=== PATIENT | male | born 1970 | race Caucasian/White ===

== ENCOUNTER 2017-06-30 14:48 | Inpatient (IN) | payer OTHER ==
[2017-06-30 14:48] VITALS: BMI 30.7
[2017-06-30] MEDS ORDERED: Sodium Chloride 0.9% 1,000 ML IV ONE (16:23)
[2017-06-30] MEDS ORDERED: Sodium Chloride 0.9% 1,000 ML ONE (16:43)
[2017-06-30 16:53] LABS: URINE BACTERIA RARE (<OCC); URINE BILIRUBIN NEGATIVE (NEGATIVE); URINE BLOOD 1+ (NEGATIVE); URINE CLARITY Clear (Clear); URINE COLOR Yellow (YELLOW); URINE GLUCOSE (UA) NORMAL (Normal); URINE LEUKOCYTE ESTERASE NEG Leu/uL (Negative); URINE NITRATE NEGATIVE (NEGATIVE); URINE PROTEIN 3+ mg/dL (NEGATIVE); URINE UROBILINOGEN NORMAL mg/dL (0.2-1.0)
[2017-06-30 16:54] LABS: BASO % 0.1 % (0.0-2.0); EOS % 0.2 % (0.0-4.0); HEMOGLOBIN 16.1 g/dL (12.0-18.0); LYMPH # 0.6 K/uL (1.0-4.3); LYMPH % 4.9 % (20.0-40.0); MEAN CELL VOLUME 91.2 fL (80.0-94.0); MEAN CORPUSCULAR HEMOGLOBIN 31.9 pg (27.0-31.0); MEAN PLATELET VOLUME 9.3 fL (7.2-11.7); MONO # 0.2 K/uL (0.0-0.8); MONO % 1.7 % (0.0-10.0); NEUT # 12.2 K/uL (1.8-7.0); NEUT % 93.1 % (50.0-75.0); PLATELET COUNT 177 K/uL (130-400); RBC 5.06 Mil/uL (4.40-5.90); RED CELL DISTRIBUTION WIDTH 12.8 % (11.5-14.5); WHITE BLOOD COUNT 13.1 K/uL (4.8-10.8)
[2017-06-30 16:56] LABS: PROTHROMBIN TIME 11.6 SECONDS (9.7-12.2)
[2017-06-30 17:00] LABS: BLOOD UREA NITROGEN 15 mg/dL (9-20); GFR AFRICAN-AMERICAN > 60; GFR NON-AFRICAN AMERICAN > 60
[2017-06-30 17:01] LABS: ALT/SGPT 40 U/L (21-72); AST/SGOT 38 U/L (17-59); CALCIUM 8.4 mg/dl (8.6-10.4); LIPASE 57 U/L (23-300)
[2017-06-30] MEDS ORDERED: Iohexol 350mg/ml 100 ML ONE (17:17)
[2017-06-30 18:20] LABS: BANDS 21 % (0-2); LYMPHOCYTE 5 % (20-40); NEUTROPHIL 74 % (50-75); TOTAL CELLS COUNTED 100
[2017-06-30 18:21] LABS: LARGE PLATELETS PRESENT; MICROCYTOSIS SLIGHT; PLATELET ESTIMATE NORMAL (NORMAL)
--- NOTE | 2017-06-30 18:53 | CT ---
PROCEDURE: CT Abdomen and Pelvis with contrast HISTORY: Fever, abdominal pain in right lower quadrant tenderness COMPARISON: None. TECHNIQUE: Contrast dose: 100 cc Omnipaque 350 Radiation dose: Total exam DLP = 676.26 mGy-cm. This CT exam was performed using one or more of the following dose reduction techniques: Automated exposure control, adjustment of the mA and/or kV according to patient size, and/or use of iterative reconstruction technique. FINDINGS: LOWER THORAX: Unremarkable. LIVER: Unremarkable. No gross lesion or ductal dilatation. GALLBLADDER AND BILE DUCTS: Unremarkable. PANCREAS: Unremarkable. No gross lesion or ductal dilatation. SPLEEN: Unremarkable. ADRENALS: Unremarkable. No mass. KIDNEYS AND URETERS: Unremarkable. No hydronephrosis. No solid mass. VASCULATURE: Unremarkable. No aortic aneurysm. BOWEL: Diverticulosis without an acute inflammatory component or other associated pathologic process. APPENDIX: Inflammatory changes involving the tip of the appendix consistent with acute appendicitis. Adjacent mild inflammatory change. No focal fluid collection, loculated air, free air. PERITONEUM: Unremarkable. No free fluid. No free air. LYMPH NODES: Unremarkable. No enlarged lymph nodes. BLADDER: Unremarkable. REPRODUCTIVE: Unremarkable. BONES: No acute fracture. OTHER FINDINGS: None. IMPRESSION: Acute, uncomplicated appendicitis. Critical results protocol: Study completed 18:28 Verbal results provided to attending physician in the emergency department Dr. Jordan Ibarra at 18:43 Final results available in the EMR at 18:48
--- NOTE | 2017-06-30 19:20 | C.PDOC ---
Time Seen by Provider: 06/30/17 15:34 Chief Complaint (Nursing): Abdominal Pain History Per: Patient Onset/Duration Of Symptoms: Days (1) Current Symptoms Are (Timing): Still Present Severity: Moderate Location Of Pain/Discomfort: RLQ, Epigastric Quality Of Discomfort: "Pain" Associated Symptoms: Fever, Chills, Nausea, Loss Of Appetite Exacerbating Factors: Food Alleviating Factors: None Additional History Per: Prior Records Past Medical History Reviewed: Historical Data, Nursing Documentation, Vital Signs Vital Signs: Last Vital Signs Temp 98.3 F 06/30/17 19:20 Pulse 86 06/30/17 19:20 Resp 20 06/30/17 19:20 BP 131/73 06/30/17 19:20 Pulse Ox 98 06/30/17 19:20 - Medical History PMH: No Chronic Diseases Family History: States: Unknown Family Hx - Social History Hx Tobacco Use: No Hx Alcohol Use: Yes Hx Substance Use: No - Immunization History Hx Tetanus Toxoid Vaccination: No Hx Influenza Vaccination: No Hx Pneumococcal Vaccination: No Review Of Systems Except As Marked, All Systems Reviewed And Found Negative. Constitutional: Positive for: Fever, Malaise Cardiovascular: Negative for: Chest Pain Respiratory: Negative for: Cough, Shortness of Breath Gastrointestinal: Positive for: Abdominal Pain. Negative for: Vomiting, Diarrhea Genitourinary: Negative for: Dysuria Musculoskeletal: Negative for: Neck Pain Skin: Negative for: Rash Neurological: Negative for: Weakness, Numbness, Seizures Physical Exam - Physical Exam Appears: No Acute Distress Skin: Normal Color, Warm, Dry, No Rash Head: Atraumatic, Normacephalic Eye(s): bilateral: Normal Inspection, PERRL, EOMI Neck: Normal ROM, Supple Cardiovascular: Rhythm Regular Respiratory: Normal Breath Sounds, No Accessory Muscle Use Gastrointestinal/Abdominal: Soft, Tenderness (RLQ), No Distention Back: No CVA Tenderness Extremity: Normal ROM Neurological/Psych: Oriented x3, Normal Motor, Normal Sensation ED Course And Treatment - Laboratory Results Result Diagrams: 06/30/17 16:30 06/30/17 16:30 Lab Interpretation: Abnormal Interpretation Of Abnormal: Bandemia O2 Sat by Pulse Oximetry: 98 Pulse Ox Interpretation: Normal - CT Scan/US CT abd/pelv Other Rad Studies (CT/US): Read By Radiologist, Radiology Report Reviewed CT/US Interpretation: IMPRESSION: Acute, uncomplicated appendicitis. Progress - Interventions Interventions:: Observation, Intravenous fluid - Medications Administered Intravenous: Antiemetic, NSAID, Other (Abx) - Data Reviewed Data Reviewed: Lab, Diagnostic imaging, Old records - Patient Status Patient status: Partially improved - Continuity of Care Discussed patient case with:: Patient, ED Nurse Discussed pt. case with audit consultant/specialty: General Surgery - Patient Plan Patient Plan: Admission Disposition Discussed With : Flip Smith Comment: He accepted pt on his service. Pt was also signed out to on-call surgery resident. Doctor Will See Patient In The: Hospital Counseled Patient/Family Regarding: Studies Performed, Diagnosis - Disposition Disposition: HOSPITALIZED Disposition Time: 20:02 Condition: FAIR Forms: [facility] (Congolese) - Clinical Impression Clinical Impression: Acute appendicitis
[2017-06-30] MEDS ORDERED: cefOXitin IV 2 gm in Dextrose 2 GM/50 ML BAG IVPB STA (19:24)
[2017-06-30] MEDS ORDERED: cefOXitin 2 GM in Sodium Chloride 0.9% 100 ML IV ONE (19:30)
[2017-06-30] MEDS ORDERED: Piperacillin/Tazobact 3.375 GM in Sodium Chloride 100 ML IVPB SCH (20:45)
--- NOTE | 2017-06-30 20:49 | CP.PCM.HP ---
History of Present Illness - History of Present Illness History of Present Illness: General Surgery Dr. Smith 47 y/o M w/ no significant PMHx presents to the ED c/o abd pain x1day. Pt reports localized pain to brenda-umbilical region w/ radiation to the back. Pt has never had this pain in the past. Nothing made pain worse or better. Pt admits to nausea but denies vomiting. Pt was febrile in the ED but denies fever or chills prior to arrival. Pt admits to increased urinary frequency but denies dysuria, diarrhea, and constipation. PMHx: hemorrhoids Meds: reviewed in chart NKDA PSHx: denies SHx: denies tobacco and drug use. admits to social EtOH use FHx: noncontributory Present on Admission - Present on Admission Any Indicators Present on Admission: No Review of Systems - Review of Systems All systems: reviewed and no additional remarkable complaints except (see HPI) Past Patient History - Infectious Disease Hx of Infectious Diseases: None - Past Social History Smoking Status: Never Smoked - PSYCHIATRIC Hx Substance Use: No - SURGICAL HISTORY Hx Surgeries: No - ANESTHESIA Hx Anesthesia: No Hx Anesthesia Reactions: No Hx Malignant Hyperthermia: No Meds Allergies/Adverse Reactions: Allergies Allergy/AdvReac Type Severity Reaction Status Date / Time No Known Allergies Allergy Verified 05/11/12 10:40 Physical Exam - Constitutional Appears: Non-toxic, No Acute Distress - Head Exam Head Exam: NORMAL INSPECTION - Eye Exam Eye Exam: Normal appearance - ENT Exam ENT Exam: Mucous Membranes Moist - Respiratory Exam Respiratory Exam: NORMAL BREATHING PATTERN. absent: Accessory Muscle Use, Respiratory Distress - Cardiovascular Exam Cardiovascular Exam: absent: Bradycardia, Tachycardia - GI/Abdominal Exam GI & Abdominal Exam: Guarding (voluntary), Soft, Tenderness (TTP RLQ). absent: Distended, Rebound - Expanded GI/Abdominal Exam Expanded Expanded GI & Abdominal Exam: McBurney's Point Tenderness. absent: Obturator Sign, Psoas Sign, Rovsing's Sign - Extremities Exam Extremities exam: Positive for: normal inspection - Neurological Exam Neurological exam: Alert, Oriented x3 - Psychiatric Exam Psychiatric exam: Normal Affect, Normal Mood - Skin Skin Exam: Dry, Intact, Normal Color, Warm Results - Vital Signs Recent Vital Signs: Last Vital Signs Temp 98.3 F 06/30/17 19:20 Pulse 86 06/30/17 19:20 Resp 20 06/30/17 19:20 BP 131/73 06/30/17 19:20 Pulse Ox 98 06/30/17 20:02 - Labs Result Diagrams: 06/30/17 16:30 06/30/17 16:30 Labs: Laboratory Results - last 24 hr 06/30/17 06/30/17 06/30/17 16:30 16:30 16:30 WBC 13.1 H RBC 5.06 Hgb 16.1 Hct 46.1 MCV 91.2 MCH 31.9 H MCHC 35.0 RDW 12.8 Plt Count 177 MPV 9.3 Neut % (Auto) 93.1 H Lymph % (Auto) 4.9 L [place] % (Auto) 1.7 Eos % (Auto) 0.2 Baso % (Auto) 0.1 Neut # 12.2 H Lymph # 0.6 L [place] # 0.2 Eos # 0.0 Baso # 0.0 Neutrophils % (Manual) 74 Band Neutrophils % 21 H* Lymphocytes % (Manual) 5 L Monocytes % (Manual) TEST NOT PERFORMED Platelet Estimate Normal Large Platelets Present Microcytosis (manual) Slight PT INR APTT Sodium 131 L Potassium 3.7 Chloride 98 Carbon Dioxide 24 Anion Gap 12 BUN 15 Creatinine 1.0 Est GFR ( Amer) > 60 Est GFR (Non-Af Amer) > 60 Random Glucose 91 Calcium 8.4 L Total Bilirubin 1.4 H AST 38 ALT 40 Alkaline Phosphatase 50 Total Protein 7.7 Albumin 4.0 Globulin 3.8 Albumin/Globulin Ratio 1.0 Lipase 57 Urine Color Yellow Urine Clarity Clear Urine pH 5.0 Ur Specific [place] 1.015 Urine Protein 3+ H Urine Glucose (UA) Normal Urine Ketones Negative Urine Blood 1+ H Urine Nitrate Negative Urine Bilirubin Negative Urine Urobilinogen Normal Ur Leukocyte Esterase Neg Urine WBC (Auto) 1 Urine RBC (Auto) 5 H Ur Transition Epith Cell < 1 Urine Bacteria Rare 06/30/17 16:38 WBC RBC Hgb Hct MCV MCH MCHC RDW Plt Count MPV Neut % (Auto) Lymph % (Auto) [place] % (Auto) Eos % (Auto) Baso % (Auto) Neut # Lymph # [place] # Eos # Baso # Neutrophils % (Manual) Band Neutrophils % Lymphocytes % (Manual) Monocytes % (Manual) Platelet Estimate Large Platelets Microcytosis (manual) PT 11.6 INR 1.0 APTT 25 Sodium Potassium Chloride Carbon Dioxide Anion Gap BUN Creatinine Est GFR ( Amer) Est GFR (Non-Af Amer) Random Glucose Calcium Total Bilirubin AST ALT Alkaline Phosphatase Total Protein Albumin Globulin Albumin/Globulin Ratio Lipase Urine Color Urine Clarity Urine pH Ur Specific [place] Urine Protein Urine Glucose (UA) Urine Ketones Urine Blood Urine Nitrate Urine Bilirubin Urine Urobilinogen Ur Leukocyte Esterase Urine WBC (Auto) Urine RBC (Auto) Ur Transition Epith Cell Urine Bacteria - Imaging and Cardiology CT scan - abdomen Status: Image reviewed by me, Report reviewed by me Assessment & Plan - Assessment and Plan (Free Text) Assessment: 47 y/o M w/ acute appendicitis - NPO, IVF - Zosyn, Flagyl - pain management - monitor vitals - serial abd exam - OR in the AM for Lap mary Pt discussed w/ Dr. Sarah Amaya DO PGY2
[2017-06-30] MEDS: Piperacill/Tazo 3.375gm in Dex 3.375 GM/50 ML BAG IVPB SCH (22:31)
[2017-06-30] MEDS: Potassium Ch 20mEq in D5W 20 ML in Dextrose 5%/0.9% NS 1,000 ML IV SCH (22:31)
[2017-06-30] MEDS: metroNIDAZOLE IV 500 mg/100 ml 500 MG/100 ML BAG IVPB SCH (23:01)
[2017-07-01] MEDS: Piperacill/Tazo 3.375gm in Dex 3.375 GM/50 ML BAG IVPB SCH ×3 (03:32→21:12)
[2017-07-01] MEDS: metroNIDAZOLE IV 500 mg/100 ml 500 MG/100 ML BAG IVPB SCH ×3 (05:07→21:13)
[2017-07-01] MEDS: Potassium Ch 20mEq in D5W 20 ML in Dextrose 5%/0.9% NS 1,000 ML IV SCH ×2 (05:08→14:18)
[2017-07-01] MEDS ORDERED: Propofol 10 mg/ml Inj (20 ML) ONE (09:24)
[2017-07-01] MEDS ORDERED: Rocuronium 10 mg/ml (10 ml) ONE (09:26)
[2017-07-01] MEDS ORDERED: Lidocaine 4% (Laryng-O-Jet) Kit MM ONE (09:27)
[2017-07-01] MEDS ORDERED: ceFAZolin IV 2 gm in Dextrose 0 GM/0 ML BAG IVPB ONE (09:27)
[2017-07-01] MEDS ORDERED: ceFAZolin IV 1 gm in Dextrose 0 GM/0 ML BAG IVPB ONE (09:27)
[2017-07-01] MEDS ORDERED: Bupivacaine-Epi 0.5%-1:200,000 PF Inj IJ ONE (09:27)
[2017-07-01] MEDS ORDERED: Lactated Ringer's 1,000 ML IV ONE ×2 (09:46→10:30)
[2017-07-01] MEDS ORDERED: Neostigmine Methylsulfate 3mg/3ml Syringe IV ONE (10:26)
[2017-07-01] MEDS ORDERED: Oxycodone/Acetaminophen 5/325 mg Tab PO PRN (10:46)
--- NOTE | 2017-07-01 10:46 | PCM.SURG1 ---
Surgeon's Initial Post Op Note - Surgeon's Notes Surgeon: Dr Smith Bleach Boiler Filler: Dr Hayward PGY3 Type of Anesthesia: General Endo Pre-Operative Diagnosis: acute appendicitis Operative Findings: phlegmon Post-Operative Diagnosis: acute appendicitis w/ phlegmon Operation Performed: laparoscopic appendectomy Specimen/Specimens Removed: appendix. appendiceal culture Estimated Blood Loss: EBL {In ML}: 5 Blood Products Given: N/A Drains Used: No Drains Post-Op Condition: Good Date of Surgery/Procedure: 07/01/17 Time of Surgery/Procedure: 10:46
[2017-07-01 16:30] VITALS: RESP 20
--- NOTE | 2017-07-01 22:23 | OP ---
PROCEDURE DATE: 07/01/2017 PREOPERATIVE DIAGNOSIS: Acute appendicitis. POSTOPERATIVE DIAGNOSIS: Acute appendicitis. PROCEDURE PERFORMED: Laparoscopic appendectomy. SURGEON: Flip Smith MD FINDINGS: The appendix is markedly inflamed. There is small amount of purulent material noted at the tip which was completely enveloped by omentum. No other pathology noted. DESCRIPTION OF PROCEDURE: The patient was prepared and draped in the usual sterile fashion. CO2 was insufflated to about 15 mmHg pressure. A 12-mm trocar was then inserted in the umbilicus through which a laparoscope was inserted. Under direct vision, a 5-mm suprapubic port and a 5-mm left lower quadrant ports were inserted. The patient was placed in a direct Trendelenburg position and turned over to the left side. The appendix was identified, the adhesions were taken down. The base and the mesentery were then transected with the aid of Endo TRYA. Some bleeders in the mesentery were clipped with Hemoclips. The area was irrigated with large amount of saline solution, irrigating fluid, suctioned out. Cultures were taken. CO2 was allowed to escape from the peritoneal cavity, trocars removed, the wound closed in a routine fashion. We have lost about 5 mL. No complications. Flip Smith MD
[2017-07-02] MEDS: Piperacill/Tazo 3.375gm in Dex 3.375 GM/50 ML BAG IVPB SCH ×2 (03:48→10:18)
[2017-07-02] MEDS: metroNIDAZOLE IV 500 mg/100 ml 500 MG/100 ML BAG IVPB SCH (05:30)
--- NOTE | 2017-07-02 08:00 | CP.PCM.DIS ---
Provider - Provider Date of Admission: 06/30/17 20:03 Attending physician: Flip Smith MD Time Spent in preparation of Discharge (in minutes): 5 Hospital Course - Lab Results Lab Results: Micro Results 07/01/17 11:03 Appendix Gram Stain - Final Most Recent Lab Values WBC 13.1 K/uL (4.8-10.8) H 06/30/17 16:30 RBC 5.06 Mil/uL (4.40-5.90) 06/30/17 16:30 Hgb 16.1 g/dL (12.0-18.0) 06/30/17 16:30 Hct 46.1 % (35.0-51.0) 06/30/17 16:30 MCV 91.2 fL (80.0-94.0) 06/30/17 16:30 MCH 31.9 pg (27.0-31.0) H 06/30/17 16:30 MCHC 35.0 g/dL (33.0-37.0) 06/30/17 16:30 RDW 12.8 % (11.5-14.5) 06/30/17 16:30 Plt Count 177 K/uL (130-400) 06/30/17 16:30 MPV 9.3 fL (7.2-11.7) 06/30/17 16:30 Neut % (Auto) 93.1 % (50.0-75.0) H 06/30/17 16:30 Lymph % (Auto) 4.9 % (20.0-40.0) L 06/30/17 16:30 [place] % (Auto) 1.7 % (0.0-10.0) 06/30/17 16:30 Eos % (Auto) 0.2 % (0.0-4.0) 06/30/17 16:30 Baso % (Auto) 0.1 % (0.0-2.0) 06/30/17 16:30 Neut # 12.2 K/uL (1.8-7.0) H 06/30/17 16:30 Lymph # 0.6 K/uL (1.0-4.3) L 06/30/17 16:30 [place] # 0.2 K/uL (0.0-0.8) 06/30/17 16:30 Eos # 0.0 K/uL (0.0-0.7) 06/30/17 16:30 Baso # 0.0 K/uL (0.0-0.2) 06/30/17 16:30 Neutrophils % (Manual) 74 % (50-75) 06/30/17 16:30 Band Neutrophils % 21 % (0-2) H* 06/30/17 16:30 Lymphocytes % (Manual) 5 % (20-40) L 06/30/17 16:30 Monocytes % (Manual) TEST NOT PERFORMED 06/30/17 16:30 Platelet Estimate Normal (NORMAL) 06/30/17 16:30 Large Platelets Present 06/30/17 16:30 Microcytosis (manual) Slight 06/30/17 16:30 PT 11.6 SECONDS (9.7-12.2) 06/30/17 16:38 INR 1.0 06/30/17 16:38 APTT 25 SECONDS (21-34) 06/30/17 16:38 Sodium 131 mmol/L (132-148) L 06/30/17 16:30 Potassium 3.7 mmol/L (3.6-5.2) 06/30/17 16:30 Chloride 98 mmol/L (98-107) 06/30/17 16:30 Carbon Dioxide 24 mmol/L (22-30) 06/30/17 16:30 Anion Gap 12 (10-20) 06/30/17 16:30 BUN 15 mg/dL (9-20) 06/30/17 16:30 Creatinine 1.0 mg/dL (0.8-1.5) 06/30/17 16:30 Est GFR ( Amer) > 60 06/30/17 16:30 Est GFR (Non-Af Amer) > 60 06/30/17 16:30 Random Glucose 91 mg/dL (75-110) 06/30/17 16:30 Calcium 8.4 mg/dl (8.6-10.4) L 06/30/17 16:30 Total Bilirubin 1.4 mg/dL (0.2-1.3) H 06/30/17 16:30 AST 38 U/L (17-59) 06/30/17 16:30 ALT 40 U/L (21-72) 06/30/17 16:30 Alkaline Phosphatase 50 U/L (38-126) 06/30/17 16:30 Total Protein 7.7 g/dL (6.3-8.3) 06/30/17 16:30 Albumin 4.0 g/dL (3.5-5.0) 06/30/17 16:30 Globulin 3.8 gm/dL (2.2-3.9) 06/30/17 16:30 Albumin/Globulin Ratio 1.0 (1.0-2.1) 06/30/17 16:30 Lipase 57 U/L (23-300) 06/30/17 16:30 Urine Color Yellow (YELLOW) 06/30/17 16:30 Urine Clarity Clear (Clear) 06/30/17 16:30 Urine pH 5.0 (5.0-8.0) 06/30/17 16:30 Ur Specific [place] 1.015 (1.003-1.030) 06/30/17 16:30 Urine Protein 3+ mg/dL (NEGATIVE) H 06/30/17 16:30 Urine Glucose (UA) Normal mg/dL (Normal) 06/30/17 16:30 Urine Ketones Negative mg/dL (NEGATIVE) 06/30/17 16:30 Urine Blood 1+ (NEGATIVE) H 06/30/17 16:30 Urine Nitrate Negative (NEGATIVE) 06/30/17 16:30 Urine Bilirubin Negative (NEGATIVE) 06/30/17 16:30 Urine Urobilinogen Normal mg/dL (0.2-1.0) 06/30/17 16:30 Ur Leukocyte Esterase Neg [place]/uL (Negative) 06/30/17 16:30 Urine WBC (Auto) 1 /hpf (0-5) 06/30/17 16:30 Urine RBC (Auto) 5 /hpf (0-3) H 06/30/17 16:30 Ur Transition Epith Cell < 1 /hpf (0-3) 06/30/17 16:30 Urine Bacteria Rare (<OCC) 06/30/17 16:30 - Hospital Course Hospital Course: pt is 47M presented with 24 hours of RLQ pain. Found to have appendicitis. Taken to OR for lap appendectomy. Procedure went well. Kept overnight for monitoring. D/C today tolerating diet, Rx for pain control, instructions to follow up next week. Discharge Exam - Head Exam Head Exam: NORMAL INSPECTION - Respiratory Exam Respiratory Exam: NORMAL BREATHING PATTERN. absent: Chest Wall Tenderness, Respiratory Distress - Cardiovascular Exam Cardiovascular Exam: REGULAR RHYTHM. absent: Tachycardia - GI/Abdominal Exam GI & Abdominal Exam: Soft. absent: Diminished Bowel Sounds, Distended, Firm, Guarding, Hernia Additional comments: dressing c/d/i - Neurological Exam Neurological exam: Alert, Oriented x3 - Psychiatric Exam Psychiatric exam: Normal Affect, Normal Mood - Skin Skin Exam: Normal Color, Warm Discharge Plan - Discharge Medications Prescriptions: oxyCODONE/Acetaminophen [Percocet 5/325 mg Tab] 1 tab PO Q4H PRN #12 tab PRN Reason: Pain, Moderate (4-7) - Follow Up Plan Condition: FAIR Disposition: HOME/ ROUTINE Additional Instructions: clear to shower 07/03 remove dressings 07/03 - leave strips underneath in place f/u in office next week - call for appt w/ Dr Smith
[2017-07-02 08:34] VITALS: BP 125/81; PULSE 76; TEMP 97.9; O2SAT 97
[2017-07-02] MEDS ORDERED: Influenza Vaccine 60 mcg/0.5 mL SYR (4YR UP) IM ONE (10:00)
[2017-07-02] MEDS ORDERED: Pneumococcal 23-Valent Vaccine IM ONE (10:00)
== END 2017-07-02 13:26 | disposition home or self-care (01) | DRG 883 ==
LOC: C.ER 14:48 → C.9E 20:03 → C.6T 20:28
PROVIDERS: ADMIT Surgery; ATTEND Surgery
PROC: 0DTJ4ZZ Resection of Appendix, Percutaneous Endoscopic Approach (ICD-10-PCS; principal; 2017-07-01 13:00)
DX: K35.3 Acute appendicitis with localized peritonitis (principal)